=== PATIENT | female | born 1965 | race Caucasian/White ===

== ENCOUNTER 2017-10-13 09:54 | Emergency (ER) | payer BC ==
[2017-10-13 10:08] VITALS: BP 139/78
--- NOTE | 2017-10-13 10:19 | UC ---
Skin Complaint HPI - HPI Summary HPI Summary: small tick attached above right eye brow for less than 12 hours removed Tuesday morning patient is not sure if she needs antibiotics or not - History of Current Complaint Hx Obtained From: Patient ?: No Onset/Duration: Sudden Onset Pain Intensity: 0 Pain Scale Used: 0-10 Numeric Location: Discrete Aggravating Factor(s): Nothing Alleviating Factor(s): Nothing Associated Signs & Symptoms: Positive: Negative Related History: Possible Reaction to: Insect <Aviva Zamarripa - Last Filed: 10/13/17 10:25> <Jarrell Higgins - Last Filed: 10/13/17 10:54> - History of Current Complaint Chief Complaint: [facility] Time Seen by Provider: 10/13/17 10:10 Stated Complaint: TICK BITE - Allergy/Home Medications Allergies/Adverse Reactions: Allergies Allergy/AdvReac Type Severity Reaction Status Date / Time No Known Allergies Allergy Verified 10/13/17 10:06 Home Medications: Home Medications Fosinopril/Hydrochlorothiazide [Fosinopril Sodium/Hydroch] 1 tab PO BID [History Confirmed 10/13/17] Review of Systems Constitutional: Negative Skin: Negative Eyes: Negative ENT: Negative Respiratory: Negative Cardiovascular: Negative Gastrointestinal: Negative Genitourinary: Negative Motor: Negative Neurovascular: Negative Musculoskeletal: Negative Neurological: Negative Psychological: Negative Is Patient Immunocompromised?: No All Other Systems Reviewed And Are Negative: Yes <Aviva Zamarripa - Last Filed: 10/13/17 10:25> PMH/Surg Hx/FS Hx/Imm Hx Previously Healthy: No Cardiovascular History: Hypertension - Surgical History Surgical History: None - Family History Known Family History: Positive: None - Social History Occupation: Employed Full-time Lives: Alone Alcohol Use: Occasionally Substance Use Type: None Smoking Status (MU): Heavy Every Day Tobacco Smoker Type: Cigarettes Amount Used/How Often: 1ppd Cessation Counseling: Patient Advised to Stop <Aviva Zamarripa - Last Filed: 10/13/17 10:25> Physical Exam Triage Information Reviewed: Yes Appearance: Well-Appearing, No Pain Distress, Well-Nourished Vital Signs: Initial Vital Signs Temp 98.2 F 10/13/17 10:03 Pulse 81 10/13/17 10:03 Resp 14 10/13/17 10:03 BP 139/78 10/13/17 10:03 Pulse Ox 100 10/13/17 10:03 Vital Signs Reviewed: Yes Eye Exam: Normal Eyes: Positive: Conjunctiva Clear ENT Exam: Normal ENT: Positive: Normal ENT inspection, Hearing grossly normal. Negative: Trismus , Muffled voice, Hoarse voice Dental Exam: Normal Neck exam: Normal Neck: Positive: Supple, Nontender Respiratory Exam: Normal Respiratory: Positive: Chest non-tender, No respiratory distress, No accessory muscle use Cardiovascular Exam: Normal Cardiovascular: Positive: RRR, Pulses Normal, Brisk Capillary Refill Musculoskeletal Exam: Normal Musculoskeletal: Positive: Strength Intact, ROM Intact, No Edema Neurological Exam: Normal Neurological: Positive: Alert, Muscle Tone Normal Psychological Exam: Normal Skin Exam: Normal <Aviva Zamarripa - Last Filed: 10/13/17 10:25> Vital Signs: Initial Vital Signs Temp 98.2 F 10/13/17 10:03 Pulse 81 10/13/17 10:03 Resp 14 10/13/17 10:03 BP 139/78 10/13/17 10:03 Pulse Ox 100 10/13/17 10:03 <Jarrell Higgins - Last Filed: 10/13/17 10:54> Course/Dx - Course Course Of Treatment: Patient does not meet criteria for doxycycline prophylaxis per CDC criteria. Patient provided information about Lyme disease take exposures and signs and symptoms to watch for and report primary care provider. Patient verbalizes understanding - Diagnoses Provider Diagnoses: Tick Bite right forehead <Aviva Zamarripa Last Filed: 10/13/17 10:25> Discharge - Sign-Out/Discharge Documenting (check all that apply): Discharge/Admit/Transfer - Billing Disposition and Condition Condition: STABLE Disposition: Home <Aviva Zamarripa - Last Filed: 10/13/17 10:25> - Billing Disposition and Condition Condition: STABLE Disposition: Home <Jarrell Higgins - Last Filed: 10/13/17 10:54> - Discharge Plan Condition: Stable Disposition: HOME Patient Education Materials: Lyme Disease (ED), Tick Bite (ED) Referrals: Isaura Vale PA [Primary Care Provider] - If Needed Additional Instructions: Per institutional requirements, I have reviewed the chart, however, I was not consulted specifically or made aware of this patient by the above midlevel provider. I did not personally evaluate, interact with , or disposition this patient.
== END 2017-10-13 10:24 | disposition home or self-care (01) ==
LOC: UCCORT 09:54
DX: S00.86XA Insect bite (nonvenomous) of other part of head, initial encounter (principal); W57.XXXA Bitten or stung by nonvenomous insect and other nonvenomous arthropods, initial encounter; Y93.9 Activity, unspecified; Y92.9 Unspecified place or not applicable; I10 Essential (primary) hypertension; F17.210 Nicotine dependence, cigarettes, uncomplicated
CPT/HCPCS: 99211; G0463

== ENCOUNTER 2018-04-13 08:34 | Day surgery (SDC) | payer BC ==
[~2018-04-13 08:34] MED LIST: Buffered Lidocaine 0.9% SYRIN* 5 ML/SYR SYRINGE INTRADERM ONE; Lactated Ringers 1000 ML Bag* 1,000 ML IV SCH
[2018-04-13] MEDS ORDERED: ROPIVACAINE 5 MG/ML 30 ML BTL (0.5%) ONE (08:43)
[2018-04-13] MEDS ORDERED: Lidocaine 1% MPF wEPI 200,000* 30 ML SDV ONE (08:53)
[2018-04-13] MEDS ORDERED: Bupivacaine 0.25% SDV PF* 10 ML VIAL INJ ONE ×2 (08:57→09:14)
[2018-04-13 09:34] VITALS: BP 160/78
--- NOTE | 2018-04-13 16:39 | OP ---
DATE OF OPERATION: 04/13/18 [facility] DATE OF : 65 SURGEON: Alen Aaron MD DESKTOP PUBLISHING SPECIALIST: MAHENDRA España ANESTHESIOLOGIST: None. ANESTHESIA: Local only with 1% lidocaine with epinephrine. PRE-OP DIAGNOSIS: Right carpal tunnel syndrome. POST-OP DIAGNOSIS: Right carpal tunnel syndrome. OPERATIVE PROCEDURE: Right open carpal tunnel release. INDICATIONS: Prerna has had progressive right carpal tunnel syndrome. We had talked about risks and benefits and she had wanted to proceed. ESTIMATED BLOOD LOSS: 5 mL. COMPLICATIONS: None. FINDINGS: See above and below. DESCRIPTION OF PROCEDURE: Prerna was seen in the preoperative holding area. The correct side, site, and procedure were identified. We came back to the operating room. The arm was prepped and draped in the usual fashion. A time- out was performed. Prior to coming back to the operating room in the preoperative area, I had infiltrated the operative area with 1% lidocaine with epinephrine after the time out was performed. After the arm was prepped and draped and time out has been performed, I exsanguinated the arm with the Esmarch and the forearm tourniquet was inflated to 225 mmHg. I then made a 2 to 3 cm longitudinal incision in the proximal palm. Dissection was carried down through the subcutaneous tissue and palmar fascia. The transverse carpal ligament was released off the radial aspect of the hook of the hamate. The release was completed distally and then proximally , I released the subcutaneous tissue and fascia and retracted that with a Angel retractor and released the remainder of the transverse carpal ligament and distal antebrachial fascia with the tenotomy scissors under direct visualization. Once I confirmed the release distally and proximally, we irrigated out the wound. The skin was closed with 4-0 nylon suture. Some 0.25 % plain Marcaine was infiltrated all around the operative area. Soft dressings were applied and she was taken to the recovery room in stable condition. [id number] #: [id number] [facility]
== END 2018-04-13 09:41 | disposition home or self-care (01) ==
LOC: OREAST 08:34
PROVIDERS: ATTEND Orthopaedic Surgery Hand Surgery
DX: G56.01 Carpal tunnel syndrome, right upper limb (principal); I10 Essential (primary) hypertension
CPT/HCPCS: J2001; J2795; J3490